=== PATIENT | female | born 1995 | race Caucasian/White ===

== ENCOUNTER 2018-10-20 06:12 | Inpatient (IN) ==
[2018-10-20] MEDS ORDERED: ONDANSETRON 4 MG/2 ML VIAL IV PRN (07:13)
[2018-10-20] MEDS ORDERED: BUTORPHANOL 2 MG/ML VIAL IV PRN (07:13)
[2018-10-20] MEDS ORDERED: LACTATED RINGERS 500 ML IV PRN (07:13)
[2018-10-20] MEDS ORDERED: LACTATED RINGERS 1,000 ML IV SCH (07:30)
[2018-10-20] MEDS: OXYTOCIN/LR 20 UNIT/1,000 ML BAG IV SCH ×2 (07:31→18:25)
[2018-10-20] MEDS ORDERED: hydrOXYzine HCL 25 MG/1 ML VIAL IM PRN (07:33)
[2018-10-20] MEDS ORDERED: ONDANSETRON 4 MG/2 ML VIAL IV ONE (07:33)
[2018-10-20] MEDS ORDERED: PROMETHAZINE 25 MG/1 ML VIAL IM ONE (07:33)
[2018-10-20] MEDS ORDERED: CITRIC ACID/SODIUM CITRATE 30 ML UDCUP PO ONE (07:33)
[2018-10-20] MEDS ORDERED: LACTATED RINGERS 1,000 ML IV ONE (07:33)
[2018-10-20] MEDS ORDERED: diphenhydrAMINE 50 MG/1 ML VIAL IV PRN ×2 (07:33)
[2018-10-20] MEDS ORDERED: FAMOTIDINE 20 MG/2 ML VIAL IV ONE (07:33)
[2018-10-20] MEDS ORDERED: NALOXONE 0.4 MG/ML VIAL IV PRN (07:33)
[2018-10-20] MEDS ORDERED: ePHEDrine 50 MG/ML AMP IV PRN (07:33)
[2018-10-20 07:35] LABS: Basophils # 0.1 10*3/uL (0.0-0.2); Basophils % 0.5 % (0.0-0.8); Eosinophils # 0.1 10*3/uL (0.0-0.87); Eosinophils % 0.6 % (0.00-10.9); Hematocrit 34.4 VOL% (35.7-47.0); Hemoglobin 10.8 GM/DL (12.0-16.0); Immature Granulocytes % 1.2 %; Immature Granulocytes Absolute 0.14 #; Lymphocytes # 2.9 10*3/uL (1.4-4.0); Lymphocytes % 23.7 % (21.3-54.2); Mean Corpuscular HGB Conc 31.4 GM/DL (32-36); Mean Corpuscular Hemoglobin 26 PG (27-34); Mean Corpuscular Volume 84.1 FL (87-102); Monocytes # 0.9 10*3/uL (0.11-0.8); Monocytes % 7.4 % (1.7-12.7); Neutrophils % 66.6 % (38.7-73.9); Platelet Count 218 T/CUMM (130-400); Red Blood Count 4.09 MC/CUMM (3.8-5.5); Red Cell Distribution Width 14.6 % (9.3-17.3); White Blood Count 12.1 T/CUMM (4-12)
[2018-10-20] MEDS ORDERED: fentaNYL 2 MCG/ROPIV 0.2% EPID 100 ML EPIDURAL SCH (08:00)
[2018-10-20 08:05] LABS: Alanine Aminotransferase 12 U/L (13-56); Albumin 2.6 G/DL (3.4-5.0); Alkaline Phosphatase 178 U/L (45-117); Aspartate Amino Transferase 16 U/L (0-37); Bilirubin,Total < 0.39 MG/DL (0.2-1.0); Blood Urea Nitrogen 6 MG/DL (7-18); Calcium 9.1 MG/DL (8.5-10.1); Glucose 73 MG/DL (74-106); Osmolality,Calculated 269.8 MOS/KG (273-304); Potassium 3.9 MMOL/L (3.5-5.1); Sodium 137 MMOL/L (136-145); Total Protein 6.9 G/DL (6.4-8.3)
[2018-10-20 10:23] LABS: Apearance,Urine CLEAR (Clear); Bilirubin,Urine Negative (Negative); Blood, Urine Negative (Negative); Glucose,Urine (UA) Negative (Negative); Ketones,Urine 5 mg/dL (Negative); Mucus,Urine Occasional /LPF (Occasional); Nitrite,Urine Negative (Negative); Protein,Urine Negative; Urine Color Yellow (Yellow); Urine Urobilinogen < 2.0 EU/DL (0.2-1.0); WBC,Urine <1 /HPF (0-6)
[2018-10-20] MEDS ORDERED: TRANEXAMIC ACID 1,000 MG/10 ML VIAL ONE (13:27)
[2018-10-20] MEDS ORDERED: miSOPROStol 200 MCG TABLET ONE (13:27)
[2018-10-20] MEDS ORDERED: OXYTOCIN/LR 0 UNIT/0 ML BAG IV ONE (13:27)
[2018-10-20] MEDS ORDERED: METHYLERGONOVINE 0.2 MG/1 ML AMP ONE (13:27)
[2018-10-20] MEDS ORDERED: CARBOPROST TROMETHAMINE 250 MCG/ML AMP IM ONE (13:28)
[2018-10-20] MEDS ORDERED: IBUPROFEN 800 MG TABLET PO PRN (18:19)
[2018-10-20] MEDS ORDERED: oxyCODONE/ACETAMINOPHEN 5-325 MG TABLET PO PRN (18:19)
[2018-10-20] MEDS: IBUPROFEN 800 MG TABLET PO PRN (23:57)
[2018-10-21 06:11] LABS: Basophils # 0.1 10*3/uL (0.0-0.2); Basophils % 0.4 % (0.0-0.8); Eosinophils # 0.1 10*3/uL (0.0-0.87); Eosinophils % 0.7 % (0.00-10.9); Hematocrit 28.6 VOL% (35.7-47.0); Hemoglobin 9.1 GM/DL (12.0-16.0); Immature Granulocytes % 1.2 %; Immature Granulocytes Absolute 0.17 #; Lymphocytes % 21.1 % (21.3-54.2); Mean Corpuscular HGB Conc 31.8 GM/DL (32-36); Mean Corpuscular Hemoglobin 27 PG (27-34); Mean Corpuscular Volume 84.6 FL (87-102); Mean Platelet Volume 11.2 FL (9.6-12.0); Monocytes # 1.1 10*3/uL (0.11-0.8); Monocytes % 7.4 % (1.7-12.7); Neutrophils # 9.9 10*3/uL (1.4-7.4); Neutrophils % 69.2 % (38.7-73.9); Platelet Count 184 T/CUMM (130-400); Red Blood Count 3.38 MC/CUMM (3.8-5.5); Red Cell Distribution Width 14.4 % (9.3-17.3); White Blood Count 14.3 T/CUMM (4-12)
[2018-10-21] MEDS: IBUPROFEN 800 MG TABLET PO PRN (18:04)
[2018-10-22 07:23] VITALS: BP 116/70
[2018-10-22] MEDS ORDERED: DOCUSATE SODIUM 100 MG CAPSULE PO SCH (09:00)
== END 2018-10-22 11:45 | disposition home or self-care (01) | DRG 807 ==
LOC: N.LD 06:12 → N.OB 16:19
PROVIDERS: ADMIT Obstetrics & Gynecology; ATTEND Obstetrics & Gynecology